=== PATIENT | male | born 1965 | race Caucasian/White ===

== ENCOUNTER 2022-06-27 23:49 | Emergency (ER) | payer SELFPAY ==
[~2022-06-27] VITALS: Ht 175.3 cm; Wt 64.9 kg
--- NOTE | 2022-06-28 00:25 | NUR ---
Dr. Barker at bedside. MSE in progress.
[2022-06-28 01:14] LABS: MEAN CORPUSCULAR HEMOGLOBIN 32.3 uug (23.8-33.4); PLATELET COUNT (AUTO) 194 K/uL (152-348)
--- NOTE | 2022-06-28 01:18 | NUR ---
x-ray at bedside.
[2022-06-28 01:26] LABS: CARBON DIOXIDE 27 mmol/L (21-32); CHLORIDE 103 mmol/L (98-107); CREATININE 0.8 mg/dL (0.6-1.3); ETHANOL < 3 MG/DL (0-0); GLUCOSE 92 mg/dL (74-106); POTASSIUM 3.7 mmol/L (3.5-5.1); UREA NITROGEN, BLOOD 17 mg/dL (7-18)
[2022-06-28] MEDS ORDERED: IBUP-1955 PO (02:05)
[2022-06-28] MEDS ORDERED: IBUPROFEN 600 MG TABLET PO ONE (02:15)
[2022-06-28] MEDS ORDERED: IBUPROFEN 600 MG TABLET ONE (02:16)
--- NOTE | 2022-06-28 02:20 | NUR ---
No changes in mental status observed. NAD noted. Patient given written and verbal discharge instructions. Patient verbalizes understanding of instructions. Patient is ambulatory with steady gait. Refuses offer of senior care placement. Patient given list of available shelters in surrounding area. Patient was provided with food.
[2022-06-28 02:40] VITALS: BP 138/76
== END 2022-06-28 02:21 | disposition home or self-care (01) ==
LOC: ER 23:53
DX: G89.29 Other chronic pain (principal); M25.572 Pain in left ankle and joints of left foot; M25.571 Pain in right ankle and joints of right foot; E83.42 Hypomagnesemia; Z59.00 Homelessness unspecified
CPT/HCPCS: 36415; 73600; 83735; 85025; 85651; A4663; G0480